=== PATIENT | female | born 2000 | race Caucasian/White ===

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

== ENCOUNTER 2023-04-25 12:38 | Emergency (ER) | payer MEDICAID ==
[~2023-04-25] VITALS: Ht 160 cm; Wt 68.0 kg
[~2023-04-25 12:38] MED LIST changes: +ONDA4TAB6 PO
[2023-04-25 12:43] VITALS: BP 121/68
== END 2023-04-25 16:46 | disposition left against medical advice (07) ==
LOC: ER 12:39
DX: O26.892 Other specified pregnancy related conditions, second trimester (principal); K92.0 Hematemesis; Z3A.20 20 weeks gestation of pregnancy; Z53.21 Procedure and treatment not carried out due to patient leaving prior to being seen by health care provider
CPT/HCPCS: 99281